=== PATIENT | male | born 1970 | race Caucasian/White ===

== ENCOUNTER 2018-07-14 15:01 | Emergency (ER) | payer SELFPAY ==
[2018-07-14] MEDS ORDERED: Acetaminophen 500 MG TAB ONE (15:26)
--- NOTE | 2018-07-14 16:15 | RAD ---
CHEST TWO VIEWS: 07/14/18 HISTORY: Cough. FINDINGS: No comparison. The cardiac silhouette and pulmonary vasculature are unremarkable. Mediastinum is midline. No conflue nt air space consolidation, pneumothorax, or pleural fluid. IMPRESSION: No active cardiopulmonary abnormalities are demonstrated. POS: [facility]
== END 2018-07-14 16:10 | disposition home or self-care (01) ==
LOC: MADERS 15:01
DX: J11.1 Influenza due to unidentified influenza virus with other respiratory manifestations (principal); Z87.891 Personal history of nicotine dependence
CPT/HCPCS: 71046; 94640; J7620